=== PATIENT | male | born 1930 | race Caucasian/White ===

== ENCOUNTER 2019-04-15 19:43 | Emergency (ER) | payer MEDICARE, OTHER ==
[~2019-04-15] VITALS: Ht 165.1 cm; Wt 62.7 kg
[2019-04-15 19:59] VITALS: Ht 165.1 cm; Wt 62.7 kg
[2019-04-15] MEDS ORDERED: hydrALAzine 20 MG INJ IV ONE (21:00)
[2019-04-15] MEDS ORDERED: DIPHENHYDRAMINE 50 MG INJ IV ONE (21:30)
[2019-04-15] MEDS ORDERED: LABETALOL HCL 20MG INJ IV ONE (22:30)
[2019-04-15] MEDS ORDERED: morphine 2 MG INJ IV STA (22:45)
[2019-04-15] MEDS ORDERED: ONDANSETRON 4 MG INJ IV STA (22:45)
[2019-04-15 23:05] VITALS: RESP 16
[2019-04-15 23:29] VITALS: BP 152/64; PULSE 86
[2019-04-15] MEDS ORDERED: LORAZEPAM 2 MG INJ IV ONE (23:30)
[2019-04-15] MEDS ORDERED: CLON-379 PO (23:31)
--- NOTE | 2019-04-15 23:41 | ERD ---
ER Documentation Chief Complaint Chief Complaint MUNOZ x 2 days; no Neuro deficits; hx HTN,DM HPI This is an 88-year-old male with a past medical history of BPH and hypertension. He takes 20 mg of benazepril daily. The patient was brought into the emergency department by his family as he states for the past 2 days he has had a mild headache. He states it is not the worst headache of his life. The headache is bandlike. He denies any trauma. He said no fevers or shaking or chills. He denies any neck pain. His family indicates that they had difficulty controlling his blood pressure just prior to arrival he took his blood pressure was elevated at 190 mmHg. He has no chest pain and no shortness of breath. No changes in vi yann. ROS All systems reviewed and are negative except as per history of present illness. Medications Home Meds Active Scripts Clonidine Hcl* (Clonidine Hcl*) 0.1 Mg Tab, 0.1 MG PO Q6 PRN for ELEVATED BLOOD PRESSURE, #10 TAB Take one tablet by mouth as instructed PRN if systolic blood pressure is greater then 180mmHg Prov:JIM WOODALL MD 04/15/19 Allergies Allergies: Coded Allergies: hydralazine (Verified Allergy, Mild, RASH, HOT FLASH, 04/15/19) PMhx/Soc History of Surgery: No Anesthesia Reaction: No Hx Neurological Disorder: No Hx Respiratory Disorders: No Hx Cardiac Disorders: Yes (HTN, HYPERLIPIDEMIA) Hx Psychiatric Problems: No Hx Miscellaneous Medical Probl: No Hx Alcohol Use: No Hx Substance Use: No Hx Tobacco Use: No Smoking Status: Never smoker Physical Exam Vitals Vital Signs Date Temp Pulse Resp B/P (MAP) Pulse Ox O2 O2 Flow FiO2 Time Delivery Rate 04/15/19 86 152/64 23:29 (93) 04/15/19 98.4 93 16 182/65 100 Room Air 23:05 (104) 04/15/19 98.4 90 16 177/63 100 Room Air 22:18 (101) 04/15/19 96.7 80 20 166/60 98 Room Air 21:29 (95) 04/15/19 96.7 82 20 177/57 98 Room Air 21:25 (97) 04/15/19 96.7 72 20 221/77 98 Room Air 20:46 (125) 04/15/19 96.7 20 224/95 98 19:59 (138) Physical Exam Constitutional:Well-developed. Well-nourished. HEENT:Normocephalic. Atraumatic.Pupils were equal round reactive to light. Moist mucous membranes.No tonsillar exudates. Neck: No nuchal rigidity. No lymphadenopathy. No posterior cervical spine tenderness or step-offs. Respiratory: Not using accessory muscles of respiration.Lungs were clear to auscultation bilaterally. No rhonchi. No rales. No wheezing. Cardiovascular: Regular rate regular rhythm.No murmurs. No rubs were appreciated.S1, S2 normal. Distal pulses are palpable 2+ bilaterally. GI: Abdomen was soft. Nontender. Non Distended. No pulsatile abdominal masses or bruits. No rebound. No guarding. Bowel sounds were present and normal. Muscle skeletal: Full range of motion of both the upper and lower extremities bilaterally.Normal muscle tone.No assymetrical calf tenderness or swelling. Skin: No petechia, no purpura. No lesions on the palms or the soles of the feet. No maculopapular rash. NEURO: Patient was alert, awake, orientated x3.No facial droop. Gait observed and normal with no ataxia.Speech had regular rate and rhythm. No focal neurological deficits. Result Diagram: 04/15/19205704/15/192057 Results 24 hrs Laboratory Tests Test 04/15/19 20:58 White Blood Count 8.0 10^3/ul Red Blood Count 4.46 10^6/ul Hemoglobin 13.1 g/dl Hematocrit 39.8 % Mean Corpuscular Volume 89.2 fl Mean Corpuscular Hemoglobin 29.4 pg Mean Corpuscular Hemoglobin Concent 32.9 g/dl Red Cell Distribution Width 12.5 % Platelet Count 172 10^3/UL Mean Platelet Volume 11.3 fl Immature Granulocytes % 0.300 % Neutrophils % 54.2 % Lymphocytes % 30.1 % Monocytes % 9.5 % Eosinophils % 5.3 % Basophils % 0.6 % Nucleated Red Blood Cells % 0.0 /100WBC Immature Granulocytes # 0.020 10^3/ul Neutrophils # 4.3 10^3/ul Lymphocytes # 2.4 10^3/ul Monocytes # 0.8 10^3/ul Eosinophils # 0.4 10^3/ul Basophils # 0.1 10^3/ul Nucleated Red Blood Cells # 0.0 10^3/ul Prothrombin Time 12.2 Sec Prothrombin Time Ratio 1.0 INR International Normalized Ratio 0.89 Activated Partial Thromboplast Time 28.4 Sec Sodium Level 138 mmol/L Potassium Level 3.9 mmol/L Chloride Level 102 mmol/L Carbon Dioxide Level 26 mmol/L Anion Gap 10 Blood Urea Nitrogen 22 mg/dl Creatinine 0.94 mg/dl Est Glomerular Filtrat Rate mL/min mL/min Glucose Level 108 mg/dl Calcium Level 9.2 mg/dl Total Bilirubin 0.5 mg/dl Direct Bilirubin 0.00 mg/dl Indirect Bilirubin 0.5 mg/dl Aspartate Amino Transf (AST/SGOT) 22 IU/L Alanine Aminotransferase (ALT/SGPT) 27 IU/L Alkaline Phosphatase 101 IU/L Creatine Kinase 48 IU/L Creatine Kinase Index 2.5 Creatinine Kinase MB (Mass) 1.19 ng/ml Troponin I < 0.012 ng/ml B-Type Natriuretic Peptide 528 PG/ML Total Protein 7.6 g/dl Albumin 4.1 g/dl Globulin 3.50 g/dl Albumin/Globulin Ratio 1.17 Current Medications Medications Dose Sig/Em Start Time Status Last (Trade) Ordered Route PRN Stop Time Admin Dose Reason Admin Hydralazine 10 mg ONCE ONCE 04/15/19 DC 04/15/19 HCl IV 21:00 20:54 (Apresoline) 04/15/19 21:01 25 mg ONCE ONCE 04/15/19 DC 04/15/19 Diphenhydrami IV 21:30 21:50 ne HCl 04/15/19 21:31 (Benadryl) Labetalol 10 mg ONCE ONCE 04/15/19 DC 04/15/19 HCl IV 22:30 22:31 (Labetalol) 04/15/19 22:31 Morphine 2 mg ONCE STAT 04/15/19 DC Sulfate IV 22:45 (morphine) 04/15/19 22:46 Ondansetron 4 mg ONCE STAT 04/15/19 DC HCl (Zofran IV 22:45 Inj) 04/15/19 22:46 Clonidine 0.1 mg ONCE ONCE 04/15/19 DC 04/15/19 (Catapres) PO 23:00 23:07 04/15/19 23:01 Lorazepam 0.5 mg ONCE ONCE 04/15/19 DC (Ativan) IV 23:30 04/15/19 23:31 Procedures/MDM This patient presented to the emergency department with severely elevated blood pressure. My differential diagnosis included but was not limited to conditions that could end-organ damage such as acute coronary syndrome, acute pulmonary edema, aortic dissection, subarachnoid hemorrhage, intracerebral hemorrhage, cerebral infarction, withdrawal syndromes from beta blockers, or states of catecholamine excess such as pheochromocytoma or drug intoxication. Ancillary lab work was obtained. There was no elevation in the BUN and creatinine to suggest acute renal failure. Electrolytes were normal. Cardiac enzyme was normal and the 12 lead EKG showed no acute ischemic changes or left ventricular hypertrophy. 12 Lead EKG tracing ordered and reviewed by myself showed: Normal sinus rhythm of 75 bpm and no arrhythmia. DE interval normal. QRS duration widened with a right bundle branch block No ST segment elevation No ST segment depression. No changes consistent with acute ischemia. I obtained a CT scan the patient's head which showed no intracerebral hemorrhage mass-effect or midline shift. There is soft tissue swelling but this was not appreciated on physical exam. The patient refused analgesic medication as he said that headache was benign. The patient received IV labetalol and IV hydralazine. After the hydralazine the patient felt flushed and was given Benadryl. The patient's blood pressure improved with clonidine. Given that the patient had an absence of cerebral, ocular, cardiac or renal damage the hypertensive urgency was treated with oral agents in the emergency r oom with improvement of the patient's blood pressure. The patient likely appeared to be complaint with primary care physician and will follow up with their PCP in the next 24-48 hours. They were instructed to return to the emergency department at anytime if there is any worsening of their condition such as development of chest pain or a headache. They were instructed to resume previous medication regimen or initiate a suitable medication regimen under care of the PCP to enable proper monitoring for drug reactions. The patient was also informed on the adverse side effects and adverse drug interactions of the medications prescribed to them by myself. The patient gave informed consent to the prescription of the new medication. Departure Diagnosis: Primary Impression: Hypertensive urgency Condition: Fair Patient Instructions: Hypertension, Established, Out Of Control JIM WOODALL MD Apr 15, 2019 23:41
== END 2019-04-15 23:43 | disposition home or self-care (01) ==
LOC: E/R 19:43
DX: I16.0 Hypertensive urgency (principal); I10 Essential (primary) hypertension; E11.9 Type 2 diabetes mellitus without complications
CPT/HCPCS: 70450; 71045; 80053; 82550; 82553; 83880; 84484; 85025; 85610; 85730; 93005; 96374; 96375; 99285; J0360; J1200; J2405; J2270